=== PATIENT | female | born 1935 | race Caucasian/White ===

== ENCOUNTER 2024-02-23 08:29 | Inpatient (IN) ==
[2024-02-23] MEDS ORDERED: IOPAMIDOL 100 ML BOTTLE IV ONE (08:30)
[2024-02-23 10:00] LABS: Basophils # (Auto) 0.03 K/mcL (0.00-0.30); Basophils % (Auto) 0.3 % (0.0-2.0); Eosinophils # (Auto) 0 K/mcL (0.00-0.70); Eosinophils % (Auto) 0 % (0.0-7.0); Hematocrit 36.4 % (34.1-44.9); Hemoglobin 11.4 g/dL (11.2-15.7); Lymphocytes # (Auto) 1.43 K/mcL (1.50-4.80); Lymphocytes % (Auto) 16.5 % (15.5-49.0); Mean Cell Volume 100.3 fL (80.0-100.0); Mean Corpuscular HGB Conc 31.3 g/dL (31.0-36.0); Mean Platelet Volume 10.7 fL (8.8-12.5); Monocytes # (Auto) 1.01 K/mcL (0.10-0.90); Monocytes % (Auto) 11.6 % (1.0-12.0); Neutrophils % (Auto) 71.5 % (38.0-78.0); Platelet Count 234 K/mcL (140-440); RBC 3.63 M/mcL (3.59-5.38); Red Cell Distribution Width 12.7 % (11.5-14.5); WBC 8.7 K/mcL (4.5-11.0)
[2024-02-23] MEDS: cefTRIAXone 2 GM in DEXTROSE 5% IN WATER 50 ML IV ONE (10:07)
[2024-02-23 10:08] LABS: ALT/SGPT 19 U/L (<40); AST/SGOT 33 U/L (<32); Albumin 3.9 gm/dL (3.2-5.2); Albumin/Globulin Ratio 1.3 (1.0-2.3); Alkaline Phosphatase 71 U/L (39-117); Bilirubin,Total 1.1 mg/dL (0.1-1.0); Blood Urea Nitrogen 20 mg/dL (8-23); Calcium 9.7 mg/dL (8.6-10.4); Carbon Dioxide 25 mmol/L (22-30); Chloride 102 mmol/L (96-108); Glomerular Filtration Rate 65; Glucose 118 mg/dL (70-105); Potassium 4.1 mmol/L (3.3-5.1); Sodium 138 mmol/L (133-145)
[2024-02-23] MEDS: DEXAMETHASONE 10 MG/ML VIAL IV ONE (10:21)
[2024-02-23] MEDS: ONDANSETRON 4 MG/2 ML VIAL IV ONE (10:22)
[2024-02-23 10:30] LABS: INR 2.2 (0.9-1.1); Prothrombin Time 25.3 sec (11.9-14.5)
[2024-02-23] MEDS: FUROSEMIDE 20 MG/2 ML VIAL IV ONE (11:05)
[2024-02-23] MEDS: AZITHROMYCIN 500 MG in 0.9 % SODIUM CHLORIDE 250 ML IV ONE (11:06)
[2024-02-23 11:56] LABS: Appearance,Urine Clear (Clear); Bacteria,Urine Many /hpf (0); Bilirubin,Urine Negative (Negative); Color,Urine Yellow; Glucose,Urine (UA) Negative (Negative); Ketones,Urine Negative (Negative); Leukocyte Esterase,Urine Negative /uL (Negative); Mucus,Urine Many /hpf; Nitrate,Urine Positive (Negative); Protein,Urine 100 mg/dL (Negative); Specific Gravity,Urine >= 1.030 (1.000-1.035); Urine Blood Moderate ery/mcL (Negative); Urine RBC 11 /hpf (0-3); Urine Squamous Epithelial Cell 2 /hpf (0-4); Urine WBC 0 /hpf (0-4); Urobilinogen,Urine Normal
[2024-02-23 12:58] LABS: C-Reactive Protein 4.82 mg/dL (0.03-0.80)
[2024-02-23] MEDS ORDERED: METOCLOPRAMIDE 10 MG/2 ML VIAL IV PRN (13:33)
[2024-02-23] MEDS ORDERED: MAGNESIUM SULFATE 2 GM/50 ML BAG IV PRN (13:33)
[2024-02-23] MEDS ORDERED: POTASSIUM CHLORIDE 40 MEQ in DEXTROSE 5% IN WATER 500 ML IV PRN (13:33)
[2024-02-23] MEDS ORDERED: POLYETHYLENE GLYCOL 3350 17 GM PACKET PO PRN (13:33)
[2024-02-23] MEDS ORDERED: ONDANSETRON 4 MG/2 ML VIAL IV PRN (13:33)
[2024-02-23] MEDS ORDERED: POTASSIUM CHLORIDE 20 MEQ TABLET PO PRN ×2 (13:33)
[2024-02-23] MEDS ORDERED: METOPROLOL TARTRATE 5 MG/5 ML VIAL IV PRN (13:33)
[2024-02-23] MEDS ORDERED: SENNOSIDES 1 TABLET PO PRN (13:33)
[2024-02-23] MEDS: REMDESIVIR 200 MG in 0.9 % SODIUM CHLORIDE 250 ML IV SCH (14:58)
[2024-02-23] MEDS: WARFARIN 2.5 MG TABLET PO SCH (15:10)
[2024-02-23] MEDS: REMDESIVIR 200 MG in 0.9 % SODIUM CHLORIDE 250 ML IV ONE (15:11)
[2024-02-23] MEDS: FUROSEMIDE 40 MG/4 ML VIAL IV SCH (15:13)
[2024-02-23] MEDS: REMDESIVIR 100 MG in 0.9 % SODIUM CHLORIDE 250 ML IV SCH (15:36)
[2024-02-23] MEDS: DOCUSATE SODIUM 100 MG CAPSULE PO SCH (20:58)
[2024-02-24 06:22] LABS: INR 3.2 (0.9-1.1); Prothrombin Time 33.1 sec (11.9-14.5)
[2024-02-24 06:40] LABS: ALT/SGPT 19 U/L (<40); AST/SGOT 28 U/L (<32); Albumin 3.8 gm/dL (3.2-5.2); Albumin/Globulin Ratio 1.2 (1.0-2.3); Alkaline Phosphatase 68 U/L (39-117); Bilirubin,Direct 0.3 mg/dL (<0.3); Bilirubin,Total 0.6 mg/dL (0.1-1.0); Blood Urea Nitrogen 32 mg/dL (8-23); Calcium 9.8 mg/dL (8.6-10.4); Carbon Dioxide 29 mmol/L (22-30); Chloride 102 mmol/L (96-108); Globulin 3.2 gm/dL (2.2-3.7); Glomerular Filtration Rate 56; Glucose 130 mg/dL (70-105); Lactate Dehydrogenase 223 U/L (135-225); Phosphorous 3.7 mg/dL (2.5-4.5); Sodium 144 mmol/L (133-145); Triglycerides 90 mg/dL (<150); Uric Acid 7.4 mg/dL (2.5-8.0)
[2024-02-24] MEDS: METOPROLOL SUCCINATE 50 MG TAB.XL.24H PO SCH (09:43)
[2024-02-24] MEDS: LOSARTAN 50 MG TABLET PO SCH (09:44)
[2024-02-24] MEDS: DEXAMETHASONE 4 MG TABLET PO SCH (09:44)
[2024-02-24] MEDS: amLODIPine 10 MG TABLET PO SCH (09:44)
[2024-02-24] MEDS: REMDESIVIR 100 MG in 0.9 % SODIUM CHLORIDE 250 ML IV SCH (14:15)
[2024-02-24] MEDS: SIMVASTATIN 10 MG TABLET PO SCH (18:35)
[2024-02-24] MEDS: SIMVASTATIN 20 MG TABLET PO SCH (20:04)
[2024-02-25 06:35] LABS: ALT/SGPT 16 U/L (<40); AST/SGOT 28 U/L (<32); Albumin 3.4 gm/dL (3.2-5.2); Albumin/Globulin Ratio 1.2 (1.0-2.3); Alkaline Phosphatase 62 U/L (39-117); Bilirubin,Direct 0.2 mg/dL (<0.3); Bilirubin,Total 0.5 mg/dL (0.1-1.0); Blood Urea Nitrogen 41 mg/dL (8-23); C-Reactive Protein 3.97 mg/dL (0.03-0.80); Calcium 9.7 mg/dL (8.6-10.4); Carbon Dioxide 30 mmol/L (22-30); Chloride 101 mmol/L (96-108); Globulin 2.9 gm/dL (2.2-3.7); Glomerular Filtration Rate 56; Glucose 143 mg/dL (70-105); Lactate Dehydrogenase 208 U/L (135-225); Phosphorous 3.3 mg/dL (2.5-4.5); Potassium 3.8 mmol/L (3.3-5.1); Sodium 143 mmol/L (133-145); Triglycerides 56 mg/dL (<150); Uric Acid 7.9 mg/dL (2.5-8.0)
[2024-02-25 07:19] LABS: INR 2.8 (0.9-1.1)
[2024-02-25] MEDS: WARFARIN 1 MG TABLET PO ONE (13:01)
[2024-02-25] MEDS: guaiFENesin 600 MG TAB.SR.12H PO PRN (13:01)
[2024-02-26 13:43] LABS: INR 2.4 (0.9-1.1); Prothrombin Time 27.7 sec (11.9-14.5)
[2024-02-26] MEDS: IPRATROPIUM/ALBUTEROL 3 ML AMPUL.NEB NEB PRN (14:29)
[2024-02-26] MEDS: WARFARIN 2.5 MG TABLET PO ONE (14:33)
[2024-02-27 07:28] LABS: INR 2.6 (0.9-1.1); Prothrombin Time 29.4 sec (11.9-14.5)
[2024-02-27 12:20] VITALS: TEMP 99; O2SAT 99
== END 2024-02-27 13:48 | DRG 189 ==
LOC: ED 08:29 → MEDSUR 13:33
PROVIDERS: ADMIT Internal Medicine; ATTEND Internal Medicine